=== PATIENT | female | born 1955 | race Caucasian/White ===

== ENCOUNTER 2021-02-04 11:37 | Emergency (ER) | payer BC, SELFPAY ==
[2021-02-04 11:39] VITALS: BP 149/83; PULSE 71; RESP 18; TEMP 37; O2SAT 99; BMI 31.1
--- NOTE | 2021-02-04 12:18 | ED_ITS ---
HPI - Wound/Laceration General: Chief Complaint: Wound/Laceration Stated Complaint: Rt hand laceration Time Seen by Provider: 02/04/21 11:47 History of Present Illness: HPI narrative: 65-year-old female patient presents to the emergency department with laceration of the middle finger of the right hand, she reports was cleaning her microwave when she ran her finger across a sharp piece of metal. She reports bleeding from the site, not able to stop the bleeding with pressure. She reports takes aspirin daily. She denies weakness or limited mobility of the finger. She reports her tetanus shot is up-to-date. Place: home Patient tetanus UTD: Yes Context: accidental Associated symptoms: Reports no associated symptoms; Denies chills, fever(s), nausea or vomiting Treatments prior to arrival: bandage Review of Systems General: Reports: 10 or more systems reviewed and unremarkable except in HPI and below Const: Denies: fever(s), chills or diaphoresis Eyes: Denies: blurry vision or eye redness ENMT: Denies: throat pain, dental pain or disequilibrium Card: Denies: chest pain, palpitations or irregular heart rhythm Resp: Denies: dyspnea, productive cough, non-productive cough or wheezing GI: Denies: abdominal pain, nausea or vomiting : Denies: difficulty voiding or dysuria Musc: Denies: neck pain, back pain, joint pain or joint warmth Skin/Breast: Reports: skin tenderness and other (Bleeding from the wound); Denies: rash or pruritus Neuro: Denies: headache(s), weakness in extremities or behavioral changes Psych: Denies: anxiety or depression Mello/Lymph: Denies: easy bruising Physical Exam Const: COMMON NORMALS: no acute distress, patient oriented x3, healthy appearing and alert GENERAL APPEARANCE: cooperative, comfortable and well hydrated HENMT: COMMON NORMALS: normocephalic, Normal external nose present and moist oral mucous membranes HEAD & SCALP: normocephalic NOSE: Normal external nose present Eye: COMMON NORMALS: Equal, round and reactive pupils present and EOMs intact bilaterally GENERAL EYE: appearance normal, both eyes and all related structures PUPIL: Yes Equal, round and reactive pupils present Neck/C-Spine: COMMON NORMALS: full ROM and no lymphadenopathy GENERAL: Yes normal visual inspection and Yes trachea midline CERVICAL SPINE: Yes cervical ROM normal Lymph: LYMPHATIC: no lymphadenopathy noted Chest: COMMONS NORMALS: normal inspection of the chest Resp: COMMON NORMALS: normal respiratory effort and clear to auscultation bilaterally AUSCULTATION: clear to auscultation bilaterally Cardio: COMMON NORMALS: regular rhythm, S1 normal heart sound present and S2 normal heart sound present RHYTHM: regular rhythm HEART SOUNDS: S1 normal heart sound present and S2 normal heart sound present GI: COMMON NORMALS: Soft to palpation and non-tender INSPECTION: Yes normal to inspection PALPATION: Yes Soft to palpation : COMMON NORMALS: Yes no CVA tenderness BLADDER/KIDNEY EXAM: Yes no CVA tenderness Back/Pelvis: COMMON NORMALS: no CVA tenderness and thoracic and lumbar spine normal to inspection Extremity: COMMON NORMALS: normal to inspection, full ROM, capillary refill normal, no clubbing, cyanosis or edema, no calf tenderness and no pedal edema GENERAL: Yes normal exam except as noted RIGHT UPPER EXTREMITY: Yes hand & digits (3 cm flap, curved laceration, volar side third digit, actively bleeding) Right hand and digits: Yes ROM exam (Third right digit intact without deficit), Yes neurovascular exam (Intact without deficit) and Yes tendon exam (Intact without deficit) Neuro: COMMON NORMALS: patient oriented x3 and no focal motor deficits SENSORIUM/ORIENTATION: Yes alert Psych: COMMON NORMALS: mental status grossly normal, Normal thought process present and cooperative ACTIVITY/MOTOR BEHAVIOR: Yes appropriate eye contact THOUGHT PROCESS: Normal thought process present Skin: COMMON NORMALS: no rashes or lesions noted and turgor normal GENERAL SKIN EXAM: no rashes or lesions noted, elasticity normal and turgor normal TRAUMA: laceration (Elliptical, third digit right volar side) actively bleeding, involves subcutaneous tissue, motor nerve function intact and sensation intact Procedures Laceration Laceration 1: Site: upper extremity (Third digit, volar side) Side (If applicable): right Size (cm): 2 Description: other (Curved, flap) Depth: simple, single layer Local Anesthetic: lidocaine 1% Amount of anesthesia used (mL): 4 Pre-repair: wound explored, irrigated extensively, deep structures intact and extensive debridement Skin layer closed with: nylon Size (cm): 5-0 Number of sutures: 3 Technique: simple, interrupted (Bleeding stopped) Course Vital Signs: Vital signs: Vital Signs Temperature 98.6 F 02/04/21 11:39 Pulse Rate 71 02/04/21 11:39 Respiratory Rate 18 02/04/21 11:39 Blood Pressure 149/83 02/04/21 11:39 Pulse Oximetry 99 02/04/21 11:39 Discharge Plan Discharge Patient Disposition: Home Clinical Impression: Finger laceration Qualifiers: Encounter type: initial encounter Finger: middle finger Damage to nail status: without damage Foreign body presence: without foreign body Laterality: right Qualified Code(s): S61.212A - Laceration without foreign body of right middle finger without damage to nail, initial encounter Condition: Stable Discharge Orders: Discharge ED (Routine); Ordered 02/04/21 Ordered By: Kenna Saeed Discharge Diet: Usual diet Discharge Activity: Limit activity as instructed Patient Instructions: Suture Care (ED), Laceration (ED), Opioid Safety Activity Restrictions/Additional Instructions: Sutures out in 7 days May apply triple antibiotic ointment with pain reliever 3 times daily as needed for pain Keep covered to keep from soiling the wound, do not submerge in water, may gently cleanse with soap and water then pat dry once daily See your doctor immediately or return to the emergency department if you develop redness swelling or foul odor from the wound. Coding Level of Care Code ED Telephone Lines Repairer for Macey Spence
[2021-02-04] MEDS: neomycin-poly-bacitracin oint 0.9 gm Pkt 1 APPLIC TOPICAL (12:31)
== END 2021-02-04 12:35 | disposition home or self-care (01) ==
PROVIDERS: Emergency Provider Nurse Practitioner Family
DX: S61.212A Laceration without foreign body of right middle finger without damage to nail, initial encounter (principal); W26.8XXA Contact with other sharp object(s), not elsewhere classified, initial encounter
CPT/HCPCS: 12001; 99282